=== PATIENT | female | born 1970 | race Caucasian/White ===

== ENCOUNTER 2018-08-17 23:37 | Emergency (ER) | payer BC ==
[2018-08-17] MEDS ORDERED: Sodium Chloride 0.9% 1,000 ML IV ONE (23:51)
[2018-08-17] MEDS ORDERED: Ondansetron 4 MG/2 ML SDV IVPUSH PRN (23:52)
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
[2018-08-18 00:22] LABS: CHLORIDE,CL 100 mEq/L (98-106); SODIUM,NA 136 mEq/L (136-145)
[2018-08-18] MEDS ORDERED: fentaNYL 100 MCG/2 ML SDV IVPUSH PRN (00:34)
[2018-08-18] MEDS ORDERED: Iopamidol 755 Mg/ML 200 ML Bottle IV ONE (01:33)
[2018-08-18] MEDS ORDERED: Piperacillin/Tazobactam 3.375 GM in Sodium Chloride 0.9% 50 ML IV SCH (02:15)
[2018-08-18] MEDS ORDERED: Lactated Ringers 1,000 ML IV SCH (02:45)
== END 2018-08-18 03:10 | disposition critical access hospital (66) ==
LOC: CC.ED 23:37
DX: K35.80 Unspecified acute appendicitis (principal); Z98.51 Tubal ligation status; Z90.710 Acquired absence of both cervix and uterus
CPT/HCPCS: 36415; 74177; 80053; 81001; 85025; 86140; 96361; 96365; 96375; 99285; J2405; J2543; J3010; J7030; J7050; J7120; Q9967

== ENCOUNTER → 2018-10-03 | Day surgery (SDC) | payer BC ==
[~2018-10-03] MED LIST: Lactated Ringers 1,000 ML IV SCH; Midazolam 1 MG/ML 2 ML SDV IV ONE; fentaNYL 100 MCG/2 ML SDV IV ONE
--- NOTE | 2018-10-03 11:01 | OR ---
DATE OF OPERATION: 10/03/2018 PREOPERATIVE DIAGNOSIS: PERSONAL HISTORY OF PRIOR COLON POLYPS IN AN APPENDIX SPECIMEN. POSTOPERATIVE DIAGNOSIS: PERSONAL HISTORY OF PRIOR COLON POLYPS IN AN APPENDIX SPECIMEN. SURGEON: Bigg Joshi MD PROCEDURE: TOTAL COLONOSCOPY. ANESTHESIA: Conscious sedation with IV Versed and fentanyl. SPECIMEN: None. FINDINGS: Normal colonoscopy. RECOMMENDATIONS: Followup colonoscopy for polyp screening in 10 years. INDICATIONS: This 47-year-old female underwent an appendectomy last month and had a polyp within the appendix. She has not had a prior colonoscopy, and a screening colonoscopy for other colon polyps was recommended DESCRIPTION OF PROCEDURE: After adequate preparation, a colonoscope was inserted into the rectum. This was easily passed all the way to the cecum. Confirmation of the cecum was made by visualization of the ileocecal valve and palpation in the right lower quadrant. Photographs of the ileocecal valve were taken. The colon prep was very good. There was some retained fluid, but easily suctioned clear. On withdrawal of the scope, a good examination of the colon was accomplished. The patient has no abnormalities. I did not find any other polyps within the colon. Anal and rectal examination was also normal. Air was suctioned from the colon and the scope removed. BPB/MODL /[id number]
== END ==
LOC: CC.SDS 06:44
PROVIDERS: ATTEND Surgery
DX: Z12.11 Encounter for screening for malignant neoplasm of colon (principal); I10 Essential (primary) hypertension; E28.2 Polycystic ovarian syndrome; F32.9 Major depressive disorder, single episode, unspecified; Z86.010 Personal history of colon polyps; Z79.84 Long term (current) use of oral hypoglycemic drugs; Z79.899 Other long term (current) drug therapy
CPT/HCPCS: 45378; J2250; J3010; J7120; G0121

== ENCOUNTER 2023-09-05 16:54 | Emergency (ER) | payer BC ==
[2023-09-05 17:19] LABS: BASOPHILS ABSOLUTE AUTO 0.03 10^3/uL (0.00-0.50); BASOPHILS PERCENT AUTO 0.4 % (0-1); EOSINOPHILS ABSOLUTE AUTO 0.14 10^3/uL (0.00-1.50); HEMATOCRIT 41.5 % (37.0-47.0); HEMOGLOBIN 14.5 g/dL (12.0-16.0); IMMATURE GRAN ABSOLUTE AUTO 0.01 10^3/uL (0.00-0.49); IMMATURE GRAN PERCENT AUTO 0.1 % (0.0-4.9); LYMPHOCYTES ABSOLUTE AUTO 2.27 10^3/uL (0.60-5.00); LYMPHOCYTES PERCENT AUTO 32.9 % (24-44); MEAN CORPUSCULAR HEMOGLOBIN 30.6 pg (27.0-32.0); MEAN CORPUSCULAR HGB CONC 34.9 g/dL (32.0-36.0); MEAN CORPUSCULAR VOLUME 87.6 fL (83.0-97.0); MONOCYTES ABSOLUTE AUTO 0.51 10^3/uL (0.00-1.50); MONOCYTES PERCENT AUTO 7.4 % (0-10); NEUTROPHILS ABSOLUTE AUTO 3.95 x10^3/uL (1.80-8.00); NEUTROPHILS PERCENT AUTO 57.2 % (41-71); PLATELET COUNT,PLT 251 10^3/uL (150-400); RED BLOOD CELL COUNT 4.74 x10^6/uL (4.00-5.50); WHITE BLOOD CELL COUNT,WBC 6.9 10^3/uL (4.0-11.0)
[2023-09-05 17:28] LABS: APPEARANCE,URINE CLEAR (CLEAR); BILIRUBIN,URINE NEGATIVE (NEGATIVE); COLOR,URINE YELLOW (YELLOW); GLUCOSE,URINE NEGATIVE (NEGATIVE); KETONES,URINE NEGATIVE (NEGATIVE); LEUKOCYTE ESTERASE,URINE MODERATE (NEGATIVE); NITRITE,URINE NEGATIVE (NEGATIVE); OCCULT BLOOD,URINE NEGATIVE (NEGATIVE); PH,URINE 6.5 (4.5-8.0); PROTEIN,URINE NEGATIVE (NEGATIVE); UROBILINOGEN,URINE 0.2 EU/dL (0.2-1.0)
[2023-09-05 17:35] LABS: ALANINE AMINOTRANSFERASE,ALT 75 U/L (12-78); ALBUMIN 4.1 g/dL (3.4-5.0); ALKALINE PHOSPHATASE 167 U/L (46-116); ASPARTATE AMNIOTRANSFERASE,AST 31 U/L (15-37); BILIRUBIN TOTAL 0.4 mg/dL (0.0-1.0); BLOOD UREA NITROGEN,BUN 11 mg/dL (7-18); C-REACTIVE PROTEIN < 0.50 mg/dL (<=0.50); CALCIUM 9.5 mg/dL (8.4-10.1); CARBON DIOXIDE,CO2 28 mmol/L (21-32); CHLORIDE,CL 103 mEq/L (98-106); CREATININE 0.8 mg/dL (0.6-1.0); EST CRCL DRUG DOSING (CG) 62.07 mL/min; ESTIMATED GFR 89 mL/min (>=60); GLUCOSE RANDOM 84 mg/dL (75-99); LIPASE 82 U/L (16-77); MAGNESIUM 1.9 mg/dL (1.8-2.4); POTASSIUM,K 3.9 mEq/L (3.5-5.0); PROTEIN TOTAL,TP 7.4 g/dL (6.4-8.2); SODIUM,NA 141 mEq/L (136-145)
[2023-09-05 17:39] LABS: RBC,URINE NOT SEEN /HPF (0-5)
[2023-09-05 17:40] LABS: SQUAMOUS EPITHELIAL CELLS,UR MODERATE /HPF (NOT SEEN); WBC,URINE 0-5 /HPF (0-5)
[2023-09-05] MEDS: Ondansetron 4 MG/2 ML SDV IVPUSH STA (17:45)
[2023-09-05] MEDS: Morphine 2 MG/ML SYRINGE IVPUSH ONE (17:45)
[2023-09-05] MEDS: Iopamidol 755 Mg/ML 100 ML Bottle IVPUSH ONE (18:15)
[2023-09-05] MEDS: Sodium Chloride 0.9% 500 ML IV SCH (18:18)
[2023-09-05] MEDS: Take Home: Acetaminophen/HYDROcodone 325-5 MG, 2 Tab Pack PO ONE (18:54)
== END 2023-09-05 19:00 | disposition home or self-care (01) ==
LOC: CC.ED 16:54
DX: R10.31 Right lower quadrant pain (principal); R10.32 Left lower quadrant pain; Z90.49 Acquired absence of other specified parts of digestive tract
CPT/HCPCS: 36415; 74177; 80053; 81001; 83690; 83735; 85025; 86140; 96374; 96375; 99284; A9270; J2270; J2405; J7040; Q9967